=== PATIENT | male | born 1970 | race African-American/Black ===

== ENCOUNTER 2022-10-03 19:13 | Emergency (ER) | payer MEDICAID ==
[~2022-10-03] VITALS: Ht 190.5 cm; Wt 97.0 kg
[2022-10-03 19:49] VITALS: O2SAT 98
[2022-10-03 20:13] LABS: BASOPHILS % 0.4 % (0.0-2.0); EOSINOPHILS % 0.6 % (0.0-5.0); HEMATOCRIT. 48.2 % (42.0-52.0); LYMPHOCYTES % 29.3 % (20.0-50.0); MEAN CORPUSCULAR HEMOGLOBIN 26.8 pg (28.0-32.0); MEAN CORPUSCULAR HGB CONC 33.2 g/dL (31.0-37.0); MEAN CORPUSCULAR VOLUME 80.5 fL (80.0-94.0); MEAN PLATELET VOLUME 7.9 fl (7.4-10.4); MONOCYTES % 7.2 % (2.0-8.0); NEUTROPHILS % 62.5 % (40.0-76.0); PLATELET 284 x1000/uL (130-400); RED BLOOD CELL COUNT 5.98 mill/uL (4.7-6.1); RED CELL DISTRIBUTION WIDTH 14.3 % (11.6-14.6); WHITE BLOOD COUNT 6.2 x1000/uL (4.5-11.0)
[2022-10-03 20:30] LABS: CHLORIDE 109 mEq/L (98-107); INDEX HEMOLYSI 1 (1-3); INDEX ICTERIC 1 (1-4); INDEX LIPEMIC 1 (1-3); POTASSIUM 3.6 mEq/L (3.5-5.1); SODIUM 137 mEq/L (136-145)
[2022-10-03 20:39] LABS: ALANINE AMINOTRANSFERASE 38 IU/L (13-61); ASPARTATE AMINOTRANSFERASE 20 IU/L (15-37); BILIRUBIN TOTAL 0.5 mg/dL (0.1-1.0); CALCIUM 9.5 mg/dL (8.5-10.1); CARBON DIOXIDE 21 mEq/L (21-32); CREATININE 0.8 mg/dL (0.6-1.3); GLUCOSE 76 mg/dL (70-105); PROTEIN TOTAL 7.8 g/dL (6.0-8.3); UREA NITROGEN BLOOD 11 mg/dL (7-21)
[2022-10-03 22:00] LABS: TROPONIN I HIGH SENSITIVITY 53 ng/L (<78)
[2022-10-03] MEDS ORDERED: IBUPROFEN 600MG TABLET PO NR (23:38)
[2022-10-03] MEDS ORDERED: ENALAPRIL 1.25MG/ML VIAL 1ML IV NR (23:45)
[2022-10-04] MEDS ORDERED: HYDR25TA MT (03:45)
[2022-10-04 04:15] VITALS: BP 147/105; PULSE 58; RESP 15; TEMP 98.4
== END 2022-10-04 04:28 | disposition home or self-care (01) ==
LOC: ER 19:13
DX: I10 Essential (primary) hypertension (principal)
CPT/HCPCS: 99285; 71045; 80053; 85025; 84484; 36415; 93005; 96374; J3490